=== PATIENT | female | born 1985 | race Caucasian/White ===

== ENCOUNTER 2016-11-23 13:37 | Observation (INO) | payer MEDICAID ==
[~2016-11-23] VITALS: Ht 152.4 cm; Wt 95.3 kg
[2016-11-23] MEDS ORDERED: FERROUS SULFAT325 M1 PO (13:52)
[2016-11-23] MEDS ORDERED: PRENATAL VITAMI1 TA2 PO (13:52)
[2016-11-23 14:24] VITALS: BP 103/88
== END 2016-11-23 19:50 | disposition home or self-care (01) ==
LOC: MLD 13:37
PROVIDERS: ADMIT Obstetrics & Gynecology; ATTEND Obstetrics & Gynecology
DX: O12.03 Gestational edema, third trimester (principal); Z3A.35 35 weeks gestation of pregnancy
CPT/HCPCS: 76805; G0378; Q0092

== ENCOUNTER 2016-12-07 14:21 | Observation (INO) | payer MEDICAID ==
[~2016-12-07] VITALS: Ht 152.4 cm; Wt 97.1 kg
[~2016-12-07 14:21] MED LIST: FERROUS SULFAT325 M1 PO; PRENATAL VITAMI1 TA2 PO
== END 2016-12-07 14:50 | disposition home or self-care (01) ==
LOC: MLD 14:21
PROVIDERS: ADMIT Obstetrics & Gynecology; ATTEND Obstetrics & Gynecology
DX: O26.893 Other specified pregnancy related conditions, third trimester (principal); R10.9 Unspecified abdominal pain; Z3A.37 37 weeks gestation of pregnancy
CPT/HCPCS: 59025; 76805; G0378; Q0092

== ENCOUNTER 2016-12-08 20:59 | Observation (INO) | payer MEDICAID ==
[~2016-12-08] VITALS: Ht 152.4 cm; Wt 97.1 kg
[2016-12-09] MEDS ORDERED: NATURAL IRON65 MG PO (07:32)
[2016-12-09] MEDS ORDERED: PRENATAL VITAMI1 TA2 PO (07:32)
[2016-12-09] MEDS ORDERED: NALBUPHINE 10 MG/ML AMP IVP PRN (07:35)
[2016-12-09] MEDS ORDERED: LACTATED RINGERS 1,000 ML IV SCH (07:35)
== END 2016-12-09 18:22 | disposition home or self-care (01) ==
LOC: MLD 20:59
PROVIDERS: ADMIT Obstetrics & Gynecology; ATTEND Obstetrics & Gynecology
DX: O26.893 Other specified pregnancy related conditions, third trimester (principal); R10.9 Unspecified abdominal pain; O48.0 Post-term pregnancy; Z3A.40 40 weeks gestation of pregnancy
CPT/HCPCS: G0378; J7120

== ENCOUNTER 2016-12-10 17:56 | Inpatient (IN) | payer MEDICAID ==
[~2016-12-10] VITALS: Ht 152.4 cm; Wt 102.1 kg
[~2016-12-10 17:56] MED LIST changes: +NATURAL IRON65 MG PO
[2016-12-10 18:26] VITALS: BP 119/76
[2016-12-10] MEDS ORDERED: LACTATED RINGERS 1,000 ML IV SCH (19:07)
[2016-12-10] MEDS ORDERED: OXYTOCIN 10 UNITS/ML VIAL IM SCH (19:10)
[2016-12-10] MEDS ORDERED: PROMETHAZINE 25 MG/ML VIAL IVP PRN (19:10)
[2016-12-10] MEDS ORDERED: NALBUPHINE HYDROCHLORIDE 10 MG/ML VIAL IVP PRN (19:10)
[2016-12-10] MEDS ORDERED: METHYLERGONOVINE 0.2 MG/ML AMP IM PRN (19:10)
[2016-12-10] MEDS ORDERED: NALBUPHINE HYDROCHLORIDE 10 MG/ML VIAL ONE (21:03)
[2016-12-10] MEDS ORDERED: OXYTOCIN 20 UNITS/LR PREMIX 1,000 ML IV SCH ×2 (21:07→22:00)
[2016-12-10] MEDS ORDERED: MISOPROSTOL 25 MCG TAB ONE (21:10)
[2016-12-10] MEDS ORDERED: MISOPROSTOL 25 MCG TAB VG ONE (21:10)
[2016-12-10] MEDS ORDERED: NALBUPHINE 10 MG/ML AMP IVP PRN (21:10)
[2016-12-11] VITALS (29 sets, daily range): BP systolic 66–131; BP diastolic 26–99
[2016-12-11] MEDS ORDERED: ROPIVACAINE 0.2%/NS PREMIX 250 ML EPI ONE (02:31)
[2016-12-11] MEDS ORDERED: TERBUTALINE 1 MG/ML VIAL SUBQ PRN (05:40)
--- NOTE | 2016-12-11 08:29 | NUR ---
PATIENT HAS BEEN SCREENED AND CATEGORIZED LOW NUTRITION RISK. PATIENT WILL BE SEEN WITHIN 7 DAYS OF ADMISSION. 12/17/[address] Addendum: 12/14/16 at [address] DUE TO A CHANGE IN PT STATUS, PATIENT HAS BEEN RESCREENED AND RECATEGORIZED MODERATE NUTRITION RISK. PATIENT WILL BE SEEN WITHIN 3-5 DAYS OF ADMISSION. 12/13/16-12/15/[address]
[2016-12-11] MEDS ORDERED: ceFAZolin 1,000 MG VIAL ONE (10:59)
[2016-12-11] MEDS ORDERED: BUPIVACAINE-MPF 0.75% 10 ML VIAL INJ ONE (11:20)
[2016-12-11] MEDS ORDERED: ePHEDrine 50 MG/ML VIAL ONE (11:20)
[2016-12-11] MEDS ORDERED: OXYTOCIN 10 UNITS/ML VIAL ONE (11:20)
[2016-12-11] MEDS ORDERED: ONDANSETRON 4 MG/2 ML VIAL ONE (11:20)
[2016-12-11] MEDS ORDERED: MORPHINE PRES FREE 10 MG/10 ML AMP IV ONE (11:34)
[2016-12-11] MEDS ORDERED: MIDAZOLAM 2 MG/2 ML VIAL ONE ×2 (11:34→13:31)
[2016-12-11] MEDS ORDERED: NALBUPHINE 10 MG/ML AMP IVP PRN (12:00)
[2016-12-11] MEDS: KETOROLAC 30 MG/ML VIAL IM/IVP SCH ×2 (12:00→18:00)
[2016-12-11] MEDS ORDERED: MEPERIDINE 25 MG/ML SYR IVP PRN (12:00)
[2016-12-11] MEDS ORDERED: ONDANSETRON 4 MG/2 ML VIAL IVP PRN ×3 (12:00→14:35)
[2016-12-11] MEDS ORDERED: diphenhydrAMINE 50 MG/ML VIAL IVP PRN ×3 (12:00→14:35)
[2016-12-11] MEDS ORDERED: NALOXONE 0.4 MG/ML VIAL IVP PRN ×3 (12:00)
[2016-12-11] MEDS ORDERED: HYDROmorphone 1 MG/ML AMP IVP PRN (12:00)
[2016-12-11] MEDS ORDERED: OXYTOCIN 20 UNITS/LR PREMIX 1,000 ML IV SCH ×2 (12:00→15:10)
[2016-12-11] MEDS ORDERED: KETOROLAC 30 MG/ML VIAL IVP PRN (14:35)
[2016-12-11] MEDS ORDERED: HETASTARCH 6% 500 ML IV ONE (14:54)
--- NOTE | 2016-12-11 16:40 | NUR ---
admitted a 31 yo female from or sp c section.abdominal dressing dry and intact with a note do not remove with right and left ross bulb labeled a and b.right wrist piv 20 gauge with lr wide open and left hand 18 gauge saline lock.sinus tachycardia and bp 70s dr gomez at the bedside and aware.pt no co pain nor any discomfort.patel to gravity with dark oswald urine very low.dr gomez is aware.no vagina bleeding noted.will monitor.bilateral scd on.alert ,oriented x 4.
--- NOTE | 2016-12-11 16:45 | NUR ---
DR. BARROS PAGED THROUGH HIS OFFICE RE: CONSULT.
[2016-12-11] MEDS ORDERED: NACL 0.9% 1,000 ML IV SCH (17:30)
[2016-12-11] MEDS: OXYTOCIN 20 UNITS/LR PREMIX 1,000 ML IV SCH ×2 (18:04→23:17)
--- NOTE | 2016-12-11 18:30 | NUR ---
DR. BARROS PAGED TO BE NOTIFIED OF LAB RESULTS AND PATIENT'S CONDITION. DR. DOUGLAS PIPE OR STEAM FITTER FURNACE INSTALLER.
--- NOTE | 2016-12-11 18:35 | NUR ---
DR. DOUGLAS CALLED BACK. NOTIFIED OF LAB RESULTS, PT'S. VITAL SIGNS, URINE AND NELY X 2 OUTPUT. GAVE ORDERS.,
[2016-12-11] MEDS ORDERED: NACL 0.9% 500 ML IV ONE (18:40)
--- NOTE | 2016-12-11 19:19 | NUR ---
RECEIVED REPORT FROM ALFA PATEL. PATIENT IS AWAKE, ALERT, AND ORIENTED, WITH MOTHER AT BEDSIDE. PATIENT IS PRIMARILY MONTSERRATIAN SPEAKING BUT IS ABLE TO CONVEY NEEDS ADEQUATELY IN BELARUSIAN. PATIENT IS DX S/P BLEEDING. THERE IS A #18 IN THE LEFT HAND SALINE LOCK AND THERE IS A #18 IN THE RIGHT WRIST RECEIVING PITOCIN 20 UNITS IN LACTATED RINGER'S AT 125 ML/HR. BOTH SITE ARE INTACT, PATENT, AND ASYMPTOMATIC. THERE IS AN ABDOMINAL DRESSING COVERING PATIENT'S ABDOMEN THAT IS DRY AND INTACT. THERE IS A NELY DRAIN ON THE RIGHT SIDE OF PATIENT'S ABDOMEN LABELED A AND ANOTHER NELY DRAIN ON THE LEFT SIDE OF THE ABDOMEN LABELED B. THERE IS SCANT AMOUNT OF SEROSANGUINEOUS FLUID IN NELY DRAIN LABEL A AND 20 ML OF SEROSANGUINEOUS FLUID IN NELY DRAIN LABELED B. EXPLAINED PLAN OF CARE TONIGHT TO INCLUDE TRANSFUSION OF PRBC, MONITORING, VITAL SIGNS, AND SCHEDULED MEDICATION ADMINISTRATION. PATIENT VERBALIZED UNDERSTANDING. HOB AT 30 DEGREES WITH BED IN LOW POSITION. CONTINUE TO MONITOR PATIENT. Addendum: 12/11/16 at 2049 by Alok Mirza RN THERE IS A YEE CATHETER IN PLACE DRAINING TO GRAVITY WITH MINIMAL AMOUNT OF CLEAR YELLOW URINE NOTED. SCDS ARE IN PLACE FOR VTE PROPHYLAXIS. Addendum: 12/11/16 at 2124 by Alok Mirza RN NELY OUTPUT IS SANGUINEOUS, NOT SEROSANGUINEOUS.
[2016-12-11] MEDS: KETOROLAC 30 MG/ML VIAL IVP PRN (19:34)
--- NOTE | 2016-12-11 20:05 | NUR ---
ELLEN RASHID RN AT BEDSIDE TO ASSESS PATIENT. Addendum: 12/12/16 at 0038 by Alok Mirza RN L&D TARUN HUGHES
--- NOTE | 2016-12-11 20:15 | NUR ---
DR. KELLEY AT BEDSIDE TO SEE PATIENT. CHARGE NURSE CHIKIS PATEL GAVE MD PATIENT'S STATUS CONDITION. NO NEW ORDERS GIVEN AT THIS TIME. CONTINUE TO MONITOR PATIENT.
--- NOTE | 2016-12-11 20:27 | NUR ---
REPOSITIONED PATIENT FOR COMFORT. NO SIGNS OF SOB NOTED. HOB AT 30 DEGREES WITH BED IN LOW POSITION. CONTINUE TO MONITOR PATIENT.
--- NOTE | 2016-12-11 21:28 | NUR ---
DR. ALVERTO BARROS (DIRECTOR OF COMMUNITY EDUCATION) CALLED AT 2114, UPDATES GIVEN ON PATIENT'S CONDITION: BP 79/45, ON BLOOD TRANSFUSION OF 1 UNIT PRBC WITH CBC ORDERED AT [address] DOUGLAS; DR. KELLEY (OB) WAS HERE TO SEE THE PATIENT AT 2014. PATIENT AAOX4, DENIES PAIN, OB RN GAY WAS HERE AT 2009 TO ASSESS THE PATIENT, PER RN SMALL AMOUNT OF BLEEDING NOTED ON PATIENT'S PAD. NO NEW ORDER RECEIVED FROM DR. BARROS.
--- NOTE | 2016-12-11 21:45 | NUR ---
DR. BARROS AND DR. KELLEY AT BEDSIDE TO SEE PATIENT. NEW ORDERS GIVEN AND ENTERED BY DR. BARROS GIVEN FOLLOWS: CT WITHOUT CONTRAST OF THE ABDOMEN/PELVIS, 1 LITER BOLUS OF NORMAL SALINE WIDE OPEN, CHEM 7 PANEL. WILL FOLLOW UP WITH NEW MD ORDERS.
[2016-12-11] MEDS ORDERED: NACL 0.9% 500 ML IV SCH (21:55)
--- NOTE | 2016-12-11 22:13 | NUR ---
DR. BARROS (BIOMETRICS INSTRUCTOR) AND DR. KELLEY (OB GYNE) WERE HERE AT 2145, AWARE OF PATIENT'S RECENT VITAL SIGNS, HR 99- BP 84/39, RR 10, 98%. DR. BARROS INFORMED THAT PATIENT'S URINE OUTPUT ON DAYSFT WAS ONLY 10 MLS, DR. BARROS GAVE ORDERS: NS 1000 MLS WIDE OPEN, CT ABD/PELVIS WITHOUT CONTRAST IN AM AT 0800 AND LAB WORKS AT 0500. WILL CONTINUE TO MONITOR PATIENT.
--- NOTE | 2016-12-11 22:26 | NUR ---
ELLEN GAY RN AT BEDSIDE TO ASSESS PATIENT. OUTPUT OF 70ML OF SANGUINEOUS FLUID FROM NELY DRAIN B. CONTINUE TO MONITOR PATIENT. Addendum: 12/12/16 at 0038 by Alok Mirza RN L&D TARUN HUGHES
--- NOTE | 2016-12-11 22:34 | NUR ---
PATIENT REPOSITIONED FOR COMFORT. NO SIGNS OF SOB NOTED. HOB AT 30 DEGREES WITH BED IN LOW POSITION. CONTINUE TO MONITOR PATIENT.
--- NOTE | 2016-12-11 23:06 | NUR ---
MUSEUM LIBRARIAN AT BEDSIDE FOR SCHEDULED LAB DRAW.
[2016-12-12] VITALS (48 sets, daily range): BP systolic 93–151; BP diastolic 46–83
--- NOTE | 2016-12-12 | NUR ---
CURRENT HGB LEVEL DRAWN AT 2310 IS 8.5, PER DR. KELLEY (OB GYNE) INSTRUCTIONS WHEN HE WAS HERE AT 2014 TO CALL HIM IF HGB LEVEL IS LOWER THAN THE HGB THAT WAS DRAWN AT 1750 WHICH WAS 8.
--- NOTE | 2016-12-12 00:28 | NUR ---
PAGED DR. CM. WILL WAIT FOR CALL BACK.
--- NOTE | 2016-12-12 00:31 | NUR ---
SPOKE TO DR. DOUGLAS. INFORMED MD OF PATIENT'S HGB 8.5 AND HCT 25.0 AFTER INFUSION OF PRBC. ALSO INFORMED MD THAT DR. BARROS WAS IN EARLIER AND ORDERED BOLUS OF NORMAL SALINE AND PATIENT HAD URINE OUTPUT OF 50ML. DR. DOUGLAS ACKNOWLEDGED BY STATING "OK". ASKED MD IF HE HAD ANY NEW ORDERS. DR. DOUGLAS SAID "NO NEW ORDERS." WILL CONTINUE TO MONITOR PATIENT.
--- NOTE | 2016-12-12 01:47 | NUR ---
PATIENT SLEEPING IN BED. BREATHING IS EVEN AND UNLABORED. CALL LIGHT WITHIN REACH. CONTINUE TO MONITOR PATIENT.
[2016-12-12] MEDS: OXYTOCIN 20 UNITS/LR PREMIX 1,000 ML IV SCH ×2 (02:14→10:59)
--- NOTE | 2016-12-12 02:30 | NUR ---
L&D GAY RN AT BEDSIDE ASSESSING PATIENT.
--- NOTE | 2016-12-12 03:47 | NUR ---
ROUNDED ON PATIENT. PATIENT IS ASLEEP WITH BREATHING EVEN AND UNLABORED. VITALS ARE STABLE. WILL CONTINUE TO MONITOR PATIENT.
--- NOTE | 2016-12-12 04:40 | NUR ---
L&D GAY RN AT BEDSIDE TO ASSESS PATIENT'S LOCHIA AND FUNDUS.
--- NOTE | 2016-12-12 05:00 | NUR ---
PATIENT ABLE TO PERFORM SELF ORAL CARE. NO SIGNS OF SOB NOTED. MORNING CARE RENDERED. CHANGED PATIENT'S GOWN. PATIENT REPOSITIONED FOR COMFORT. NEEDS MET AT THIS TIME. HOB AT 30 DEGREES WITH BED IN LOW POSITION. CONTINUE TO MONITOR PATIENT.
[2016-12-12] MEDS: KETOROLAC 30 MG/ML VIAL IVP PRN ×3 (05:04→17:09)
--- NOTE | 2016-12-12 05:48 | NUR ---
SUSTAINABLE PRODUCTS MARKETING MANAGER AT BEDSIDE FOR MORNING LAB DRAW.
[2016-12-12] MEDS: KETOROLAC 30 MG/ML VIAL IM/IVP SCH ×3 (06:00→12:00)
--- NOTE | 2016-12-12 06:33 | NUR ---
Steve&Steff RASHID RN AT BEDSIDE ASSESSING PATIENT'S FUNDUS AND LOCHIA.
--- NOTE | 2016-12-12 07:13 | NUR ---
PATIENT SLEEPING IN BED AND IS STABLE. ALL NEEDS ATTENDED TO DURING SHIFT. ENDORSED CONTINUITY OF CARE TO JHON PATEL.
--- NOTE | 2016-12-12 07:15 | NUR ---
REPORT RECEIVED FROM JORGE BROWNE. PT SEEN AT BEDSIDE, AAOX4 WITH MOTHER AT BEDSIDE. PT IS PRIMARILY BELIZEAN SPEAKING, BUT ABLE TO UNDERSTAND SOME MOHAWK. PT IS ON ROOM AIR, NO S/S SOB OR DISTRESS AT THIS TIME. PT HAS A 18G LEFT HAND IV SALINE LOCKED AND 18G RIGHT WRIST IV RUNNING 20 UNITS PITOCIN WITH LR AT 125ML/HR. IV'S ARE PATENT AND INTACT. PT ON SUPERVISOR VINE FRUIT FARMING RUNNING SINUS TACHY AT THIS TIME, HR 118 AND BP 120/58. PT HAS GENERALIZED +1 EDEMA. PT NPO AT THIS TIME. YEE CATHETER IN PLACE DRAINING DARK, YELLOW URINE AT THIS TIME. PT HAS C/SECTION INCISION COVERED WITH DRESSING. DRESSING IS DRY AND INTACT. RIGHT ABD NELY DRAIN AND LEFT ABD NELY DRAIN IN PLACE DRAINING MINIMAL AMOUNT OF SEROSANGUINEOUS DRAINAGE. PT C/O OF MINIMAL CRAMPS AND SORE THROAT AT THIS TIME. ABLE TO MOVE EXTREMITIES, BUT BEDREST AT THIS TIME. SAFETY MEASURES CHECKED, CALL LIGHT LEFT AT BEDSIDE. WILL CONTINUE TO MONITOR.
--- NOTE | 2016-12-12 08:00 | NUR ---
PT OUT FOR CT ABD/PELVIS WITH RN AND PROFESSOR OF SPORT MANAGEMENT.
--- NOTE | 2016-12-12 08:15 | NUR ---
PATIENT BACK FROM CT ABD/PELVIS, TOLERATED WELL. PLACED BACK ON BEDSIDE ADDICTION THERAPIST. WILL CONTINUE TO MONITOR.
--- NOTE | 2016-12-12 08:30 | NUR ---
JOANN L&D RN AT BEDSIDE ASSESSING AND TALKING TO PATIENT.
--- NOTE | 2016-12-12 08:53 | NUR ---
RECEIVED CALL FROM UVAL[facility] AKERS, RADIOLOGY, FOR CRITICAL RAD RESULT.
[2016-12-12] MEDS ORDERED: PROBIOTIC SCREEN 1 EA MISC MC PRN (08:55)
--- NOTE | 2016-12-12 09:05 | NUR ---
DR. KELLEY NOTIFIED OF CRITICAL RADIOLOGY RESULTS, CURRENT LAB VALUES, VITAL SIGNS, NELY DRAINAGE, AND URINE AMOUNT. PATIENT HAS A STABLE BP AND TACHYCARDIA HR 104 AT THIS TIME. PER MD, PLEASE NOTIFY DR. BARROS ABOUT RESULTS.
--- NOTE | 2016-12-12 09:06 | NUR ---
DR. BARROS PAGED
--- NOTE | 2016-12-12 09:22 | NUR ---
RECEIVED CALLBACK FROM DR. BARROS. NOTIFIED MD OF CRITICAL CT ABD/PELVIS RESULTS, CURRENT LAB VALUES, AND VITAL SIGNS. ORDERS RECEIVED. WILL CONTINUE TO MONITOR.
--- NOTE | 2016-12-12 09:59 | NUR ---
TORADOL NONADMINISTERED BECAUSE TIME IS FOR 12/11/16 STRAP BUCKLER.
[2016-12-12] MEDS ORDERED: MAG SULF 2000 MG/WATER PREMIX 100 ML IV SCH (10:00)
--- NOTE | 2016-12-12 10:45 | NUR ---
DR. KELLEY AT BEDSIDE ASSESSING PATIENT. UPDATED MD ON PT'S CONDITION AND THAT PT HAS ELEVATED WBC AND 100.1F TEMP. PER MD, CONSULT DR. BARROS FOR ORDERS FOR CONTRAST CT ABD/PELVIS, ANTIBIOTICS, AND MEDICATIONS WHEN HE COMES TO VISIT PATIENT.
--- NOTE | 2016-12-12 11:07 | NUR ---
PRN TORADOL GIVEN FOR 4/10 ABD CRAMPING PAIN.
--- NOTE | 2016-12-12 11:37 | NUR ---
PT SLEEPING AT THIS TIME.
--- NOTE | 2016-12-12 11:40 | NUR ---
STARTED FFP TRANSFUSION.
--- NOTE | 2016-12-12 12:53 | NUR ---
DR. BARROS AT NURSING STATION. NOTIFIED OF DR KELLEY'S SUGGESTIONS. CT ABD/PELVIS W CONTRAST STAT AND ROCEPHIN FOR IV ABX ORDERED. WILL FOLLOW UP.
--- NOTE | 2016-12-12 14:10 | NUR ---
1ST UNIT FFP FINISHED. PT TOLERATED WELL. WILL CONTINUE TO MONITOR.
--- NOTE | 2016-12-12 14:30 | NUR ---
PT OFF UNIT TO CT ABD/PELVIS WITH CONTRAST ACCOMPANIED BY RN AND RADIOLOGY TECHS.
--- NOTE | 2016-12-12 14:50 | NUR ---
PT BACK FROM CT ABD/PELVIS. ATTACHED BACK TO BEDSIDE TIMBER MILL WORKER. PT TOLERATED WELL. WILL CONTINUE TO MONITOR.
--- NOTE | 2016-12-12 15:15 | NUR ---
RECEIVED CALL FROM [facility], FOR CRITICAL CT ABD/PELVIS.
--- NOTE | 2016-12-12 15:16 | NUR ---
DR. KELLEY AND DR. FIORELLA HORTON.
--- NOTE | 2016-12-12 15:18 | NUR ---
DR. BARROS NOTIFIED OF CRITICAL RADIOLOGY RESULTS AND HBG AT 7.3 AFTER UNIT OF FFP GIVEN. PER DR BARROS, GIVE 3 UNITS PRBC'S AND LET DR. KELLEY KNOW OF RADIOLOGY RESULTS ALSO. DR BARROS ALSO SUGGESTS PT BACK TO OR. DR KELLEY NOTIFIED OF CRITICAL RADIOLOGY RESULTS. DR KELELY AWARE OF RESULTS AT THIS TIME. WILL AWAIT ORDERS FROM DR. KELLEY. Addendum: 12/12/16 at 1612 by Martha Morris RN PER DR KELLEY, HE WILL TRY TO LOOK FOR VASCULAR SURGEON.
--- NOTE | 2016-12-12 15:50 | NUR ---
2ND UNIT FFP STARTED ON PATIENT.
--- NOTE | 2016-12-12 16:00 | NUR ---
DR. WARREN HORTON.
--- NOTE | 2016-12-12 16:15 | NUR ---
PT'S IN INCUBATOR AT PATIENT'S BEDSIDE WITH L&D NURSE.
--- NOTE | 2016-12-12 16:35 | NUR ---
TORADOL SCHEDULED NON ADMINISTERED. PT HAS PRN ORDER.
--- NOTE | 2016-12-12 16:38 | NUR ---
DR. WARREN HORTON.
--- NOTE | 2016-12-12 17:22 | NUR ---
DR. KELLEY PAGED AGAIN.
--- NOTE | 2016-12-12 17:45 | NUR ---
DR. KELLEY AT BEDSIDE TALKING TO PATIENT ABOUT SURGERY. UPDATED MD ON PATIENT CONDITION. PER MD, OK TO STOP PITOCIN DRIP AND SCHEDULED TORADOL. ORDERS RECEIVED TO PUT 2 UNITS FFP AND 4 UNITS PRBC'S ON HOLD. WILL FOLLOW UP ON ORDERS.
[2016-12-12] MEDS ORDERED: BUPIVACAINE-MPF 0.75% 10 ML VIAL INJ ONE (17:56)
[2016-12-12] MEDS ORDERED: PROPOFOL 200 MG/20 ML VIAL IV ONE (17:56)
--- NOTE | 2016-12-12 18:00 | NUR ---
DR. IBARRA AND ANESTHESIOLOGIST AT BEDSIDE TALKING TO PATIENT ABOUT SURGERY.
[2016-12-12] MEDS: HYDROmorphone 1 MG/ML AMP IVP PRN ×2 (18:02→22:39)
[2016-12-12] MEDS ORDERED: fentaNYL 0.05 MG/ML VIAL ONE (18:08)
--- NOTE | 2016-12-12 18:10 | NUR ---
PT WHEELED TO OR VIA BED WITH TWO UI DEVELOPER DESIGNER'S. Addendum: 12/12/16 at 1831 by Martha Morris RN FFP AND PRBC STILL INFUSING INTO PATIENT.
[2016-12-12] MEDS ORDERED: THROMBIN KIT 20 MU VIAL TP ONE (18:23)
--- NOTE | 2016-12-12 19:15 | NUR ---
REPORT GIVEN TO JORGE SANCHEZ. PT STILL IN OR.
[2016-12-12] MEDS ORDERED: METHYLERGONOVINE 0.2 MG/ML AMP ONE (20:32)
[2016-12-12] MEDS ORDERED: CARBOPROST 250 MCG/ML AMP IM ONE (20:35)
--- NOTE | 2016-12-12 21:15 | NUR ---
RECEIVED REPORT FROM ICU RUBBER PRINTING MACHINE OPERATOR DEE, PATIENT STILL IN SURGERY AT THIS TIME.
[2016-12-12] MEDS ORDERED: NEOMYCIN/POLYMYXIN/BACITRACIN OIN 15 GM TUBE TP ONE (21:48)
--- NOTE | 2016-12-12 22:10 | NUR ---
PATIENT GIVEN WITH EPIDURAL ANESTHESIA BEFORE SURGERY, ABLE TO MOVE BLE, NO PARESTHESIA NOTED.
--- NOTE | 2016-12-12 22:10 | NUR ---
PATIENT RETURNED TO ICU FROM SURGERY, REPORT GIVEN BY JORGE HILL. PATIENT IS ALERT, AWAKE, ORIENTED, ST ON THE MONITOR, ABDOMINAL DRESSING DRY AND INTACT, HAS THREE NELY DRAINS WITH SCANTY BLOODY DRAINAGE. PATIENT HAS TLC ON RIGHT SUBCLAVIAN, CXR ORDERED FOR CENTRAL LINE PLACEMENT. YEE CATH WITH SCANTY BLOODY DRAINAGE, IV SITES ON RIGHT WRIST G#18 AND LEFT HAND G#18 PATENT AND INTACT, SCD PLACED, KEPT COMFORTABLE.
--- NOTE | 2016-12-12 22:19 | NUR ---
CXR DONE AT BEDSIDE FOR CENTRAL LINE PLACEMENT VERIFICATION.
[2016-12-12] MEDS: LACTATED RINGERS 1,000 ML IV SCH (22:30)
--- NOTE | 2016-12-12 23:09 | NUR ---
DILAUDID 1 MG IVP GIVEN AT 2239 FOR ABDOMINAL PAIN 07/09, PAIN REASSESSMENT AT THIS TIME, PATIENT STATED "5, LITTLE BETTER".
--- NOTE | 2016-12-12 23:24 | NUR ---
DR. MAUREEN KELLEY AND PATIENT'S MOTHER AND BOYFRIEND JAMES LEFT THE UNIT AT THIS TIME. DR. KELLEY UPDATED THE FAMILY WITH PATIENT'S RECENT CONDITION AFTER THE SURGERY, RULING MACHINE OPERATOR DERLOY WAS AT BEDSIDE TO INTERPRET.
[2016-12-13] VITALS (20 sets, daily range): BP systolic 116–152; BP diastolic 60–87
--- NOTE | 2016-12-13 | NUR ---
PATIENT SLEEPING. EASILY AROUSED, DENIES PAIN, REMAINS ON SUPINE POSITION FOR S/P EPIDURAL SPINAL ANESTHESIA.
--- NOTE | 2016-12-13 00:47 | NUR ---
DR. KELLEY HERE TO SEE THE PATIENT, INFORMED OF HGB (7.7) DRAWN AT 2245, NO ORDER FOR BLOOD TRANSFUSION GIVEN. CXR RESULT FOR CENTRAL PLACEMENT VERIFCATION CHECKED, TIP IS IN THE CAVOATRIAL JUNCTION.
[2016-12-13] MEDS: HYDROmorphone 1 MG/ML AMP IVP PRN ×6 (00:55→21:45)
--- NOTE | 2016-12-13 02:10 | NUR ---
PATIENT ASLEEP, ST ON THE MONITOR, REMAINS ON SUPINE POSITION, WILL CONTINUE TO MONITOR PATIENT.
--- NOTE | 2016-12-13 02:10 | NUR ---
CALLED L&Steff, SPOKE WITH EMILEE REDMOND RN TO GIVE MESSAGE TO GAY DAS/CHARGE NURSE IF SHE WILL COME AND ASSESS THE PATIENT. Addendum: 12/13/16 at 0319 by My Wood RN CALLED Steve&Steff, SPOKE WITH ORQUIDEA/JORGE AND NOT EMILEE REDMOND/JORGE
--- NOTE | 2016-12-13 03:19 | NUR ---
FOLLOW UP CALL MADE TO L&D TO CHECK WITH THE CHARGE NURSE IF SHE CAN COME AND ASSESS THE PATIENT, ORQUIDEA/JORGE WAS THE ONE WHO ANSWERED THE PHONE AND STATED THAT SHE TOLD GAY AND THAT SHE WILL COME AND SEE THE PATIENT ONCE THEIR TWO ADMISSIONS ARE DONE.
--- NOTE | 2016-12-13 03:32 | NUR ---
GAY DAS/JORGE FROM L&D CAME AT 0330 TO CHECK THE PATIENT, NO BLEEDING NOTED.
--- NOTE | 2016-12-13 04:19 | NUR ---
PATIENT ASLEEP, NO VAGINAL BLEEDING NOTED, DRESSING ON THE ABDOMINAL AREA IS DRY AND INTACT.
--- NOTE | 2016-12-13 04:30 | NUR ---
PAGED DR. BARROS THROUGH CALL EXCHANGE TO REPORT CURRENT HGB LEVEL (7.3) THAT WAS DRAWN AT 0222, WILL WAIT FOR MD TO CALL BACK.
--- NOTE | 2016-12-13 05:30 | NUR ---
GAY OB-RN HERE TO SEE THE PATIENT.
[2016-12-13] MEDS: LACTATED RINGERS 1,000 ML IV SCH ×2 (05:42→18:23)
--- NOTE | 2016-12-13 06:00 | NUR ---
DR. BARROS CALLED BACK, AWARE OF HGB 7.3, DR. BARROS HAD A STANDING ORDER GIVEN TO TRANSFUSE 2 UNITS PRBC WHEN HGB IS LESS THAN 8. URINE SPECIMEN SENT TO THE LAB. AM CARE PROVIDED, DILAUDID 1 MG IVP GIVEN AT 0557 FOR ABDOMINAL INCISION PAIN 04/08, REMAIN ON SUPINE POSITION, CAN START TURNING AND REPOSITIONING AT 1000.
--- NOTE | 2016-12-13 06:35 | NUR ---
0620: HGB DRAWN AT 0530 WAS 7.1. BLOOD TRANSFUSION FIRST UNIT PRBC STARTED AT 0630, VS STABLE.
--- NOTE | 2016-12-13 06:58 | NUR ---
DR. BARROS CALLED BACK, INFORMED THAT PATIENT IS REQUESTING IF SHE COULD EAT NOW, MD ORDERED FULL LIQUID DIET. INFORMED ALSO THAT DR. KELLEY WAS CONCERN ABOUT PATIENT'S BP RUNNING ON 140-130 AND THAT PATIENT DOES NOT HAVE ANY BP MEDS, DR BARROS STATED"ITS OK, DONT WORRY ABOUT IT".
--- NOTE | 2016-12-13 07:25 | NUR ---
REPORT RECEIVED FROM JORGE DIOP. PT SEEN AT BEDSIDE, AAOX4, PRIMARILY CYMRAES SPEAKING BUT ABLE TO COMMUNICATE WITH ICELANDIC. MOTHER AT BEDSIDE. ON 2L O2 VIA NC; NO S/S DISTRESS OR SOB AT THIS TIME. PT HAS A RIGHT WRIST 18G IV AND LEFT HAND 18G IV SALINE LOCKED AT THIS TIME. RIGHT TLC CENTRAL LINE RUNNING IVF AND PRBC'S AT THIS TIME. LINE IS PATENT AND INTACT. PT ON BOBCAT DRIVER/LABOR RUNNING SINUS TACHY, HR AT 112. PT HAS GENERALIZED +1 EDEMA[address] YEE CATHETER IN PLACE DRAINING BLOOD TINGED URINE AT THIS TIME. PATIENT IS S/P EXP LAP. ABD DRESSING IS CLEAN, DRY, AND INTACT. RIGHT ABD NELY (LABELED A), MID ABD NELY (LABELED B), AND LEFT ABD NELY (LABELED) C NOTED. NELY A AND C ARE DRAINING SEROSANGUINEOUS DRAINAGE WHILE NELY C IS DRAINING SANGUINEOUS DRAINAGE AT THIS TIME. PT ABLE TO MOVE X4 EXTREMITIES, BUT IS S/P SPINAL ANESTHESIA. NOTIFIED PATIENT THAT SHE MAY SIT UP AFTER 1000 TODAY TO EAT BREAKFAST D/T SPINAL ANESTHESIA. PT VERBALIZED UNDERSTANDING. SAFETY MEASURES CHECKED, CALL LIGHT LEFT AT BEDSIDE. WILL CONTINUE TO MONITOR.
--- NOTE | 2016-12-13 08:48 | NUR ---
ASSISTED PT WITH ORAL CARE.
--- NOTE | 2016-12-13 08:58 | NUR ---
1 UNIT OF PRBC'S FINISHED. NO S/S DISTRESS OR SOB AT THIS TIME.
--- NOTE | 2016-12-13 09:24 | NUR ---
DR. BARROS AT NURSING STATION. UPDATED MD ON PATIENT CONDITION. PER MD, OK TO GIVE 2ND UNIT OF PRBC WITH BMP LAB DRAW BEFORE GIVING SECOND UNIT. MD AWARE THAT UPDATED CBC AND H/H ARE NOT AVAILABLE AT THIS TIME BECAUSE PT IS RECEIVING BLOOD. WILL FOLLOW UP WITH ORDERS.
--- NOTE | 2016-12-13 09:30 | NUR ---
NOTIFIED LEXA FROM LAB TO DRAW BMP. NO H/H OR CBC AT THIS TIME BECAUSE BLOOD WAS JUST GIVEN. WILL CALL LAB FOR NEXT CBC AND H/H.
--- NOTE | 2016-12-13 10:05 | NUR ---
1 UNIT PRBC STARTED ON PATIENT. WILL CONTINUE TO MONITOR.
--- NOTE | 2016-12-13 10:30 | NUR ---
APPLE JUICE AND JELLO OFFERED FOR PATIENT.
--- NOTE | 2016-12-13 11:20 | NUR ---
L&D RN, DAILYNN, AT BEDSIDE ASSESSING PATIENT.
--- NOTE | 2016-12-13 11:54 | NUR ---
LUNCH TRAY GIVEN TO PATIENT. MOTHER AT BEDSIDE ASSISTING WITH LUNCH TRAY FOR PT.
--- NOTE | 2016-12-13 12:01 | NUR ---
1 UNIT OF PRBC'S FINISHED. NO S/S REACTION AT THIS TIME. VITAL SIGNS STABLE. WILL CONTINUE TO MONITOR.
--- NOTE | 2016-12-13 12:52 | NUR ---
PERIPHERAL IV'S DISCONTINUED PER PATIENT REQUEST.
--- NOTE | 2016-12-13 13:54 | NUR ---
PT C/O 04/08 ABD PAIN. DILAUDID ADMINISTERED
--- NOTE | 2016-12-13 14:22 | NUR ---
DR. KELLEY AT BEDSIDE WITH RN AND PATIENT. UPDATED MD ON PATIENT CONDITION, CURRENT LAB VALUES (HGB 8.8, HCT 26.4), AND VITAL SIGNS. DR KELLEY ASSESSING INCISION SITE, NELY DRAINS, AND YEE. PER MD, L&D RN WILL BRING IN OB UNDERWEAR FOR PATIENT. WILL FOLLOW UP WITH ORDERS.
--- NOTE | 2016-12-13 15:00 | NUR ---
ASSISTED PT TO GET OOB. ASSISTED PT WITH SPONGE BATH, ORAL CARE, AND ALEJANDRA/CATH CARE. LINEN AND GOWN CHANGED. WILL CONTINUE TO MONITOR.
--- NOTE | 2016-12-13 15:05 | NUR ---
PT REQUESTS SCD'S OFF AT THIS TIME.
--- NOTE | 2016-12-13 15:32 | NUR ---
PT'S MOTHER AT BEDSIDE.
--- NOTE | 2016-12-13 15:45 | NUR ---
CENTRAL LINE DRESSING CHANGED. PT TOLERATED WELL. WILL CONTINUE TO MONITOR.
--- NOTE | 2016-12-13 16:02 | NUR ---
L&D RN, DAILYNN, AT BEDSIDE ASSESSING PATIENT.
[2016-12-13] MEDS: KETOROLAC 30 MG/ML VIAL IVP PRN ×2 (17:06→23:15)
--- NOTE | 2016-12-13 17:06 | NUR ---
PT C/O ABD CRAMPING PAIN 02/06. TORADOL ADMINISTERED.
--- NOTE | 2016-12-13 17:35 | NUR ---
ASSISTED WITH DINNER TRAY.
--- NOTE | 2016-12-13 18:15 | NUR ---
OB RN, GRECIA AT BEDSIDE ASSESSING PATIENT.
--- NOTE | 2016-12-13 18:18 | NUR ---
ROSELIA, BEEF RIBBER, AT BEDSIDE DRAWING BLOOD FOR H/H.
--- NOTE | 2016-12-13 19:10 | NUR ---
Report given to JORGE Constantino.
--- NOTE | 2016-12-13 19:10 | NUR ---
RECEIVED PATIENT REPORT FROM DAY SHIFT RN JHON. FULL CODE, ON INTERVENTIONAL RADIOLOGY TECHNOLOGIST, SINUS TACHYCARDIA. AWAKE, ALERT, ORIENTED X4. UNDERSTANDS MACEDONIAN BUT PRIMARILY SPEAKS SAUDI ARABIAN. NASAL CANNULA 2LPM OXYGEN. WITH CENTRAL LINE RIGHT SUBCLAVIAN TRIPLE LUMEN CATH, ALL PORTS WITH GOOD BLOOD FLOW RETURN, RUNNING IVF OF LR AT 125 ML/HR. WITH ABDOMINAL INCISION, X3 NELY DRAINS INTACT. WITH VAGINAL PACK. SCD ON BOTH LEGS. GENERALIZED NON-PITTING EDEMA +1. WITH YEE CATHETER DRAINING SLIGHTLY PINK YELLOWISH URINE OUTPUT. ON FULL LIQUID DIET.
--- NOTE | 2016-12-13 19:40 | NUR ---
PATIENT SEEN AND EXAMINED BY DR. KELLEY. HE WANTED THE PATIENT TO STAND UP BUT INFORMED THAT PATIENT COMPLAINED OF PAIN AND JUST GIVEN PAIN SHOT. DR. KELLEY SAID WILL WAIT UNTIL 9PM. DR. KELLEY STAYED IN NURSES STATION TO CHECK ON LABS AND OTHER REPORTS. INFORMED OF INTAKE AND OUTPUT, ESPECIALLY ON THE DRAINS.
--- NOTE | 2016-12-13 21:00 | NUR ---
DR. KELLEY STILL IN THE UNIT, ASKED IF THE PATIENT CAN STAND UP. PATIENT STOOD UP WITH ASSISTANCE. DR. KELLEY INSTRUCTED SHE CAN WALK AND USE INCENTIVE SPIROMETRY AT THE SAME TIME. INCENTIVE SPIROMETRY DONE, ONLY REACHED 500-800, DR. KELLEY INFORMED. DR. KELLEY PUT 3 NECKLACE CHAINS ATTACHED TO X3 NELY DRAINS WHILE PATIENT WAS STANDING UP. HE EXAMINED THE DRESSING AND VAGINAL PACK WELL. PATIENT WALKED BY HERSELF INSIDE THE ROOM, UNDER CLOSE OBSERVATION. URINE OUTPUT SEEN BY DR. KELLEY. LUNG AUSCULTATIONS DONE BY DR. KELLEY.
--- NOTE | 2016-12-13 21:15 | NUR ---
2 L & D NURSES CAME IN AND SAW THE PATIENT IN THE ROOM. SEE L&D NOTES.
--- NOTE | 2016-12-13 22:00 | NUR ---
INSTRUCTED TO DO INCENTIVE SPIROMETER TOLERATED ATLEAST Q2H.
--- NOTE | 2016-12-13 23:00 | NUR ---
OXYGEN DESATURATION 83-85% ON 2LPM/NC. PULSE OXIMETER CHANGED AND OXYGEN INCREASED TO 3LPM/NC. PATIENT DENIES ANY SOB OR DIFFICULTY BREATHING. OXYGEN IMPROVED TO 90-92%.
[2016-12-14] VITALS (10 sets, daily range): BP systolic 92–151; BP diastolic 57–91
--- NOTE | 2016-12-14 00:10 | NUR ---
PATIENT CAN MOVE ALL EXTREMITIES AND CAN TURN ON BED BY HERSELF. SLEEPING AT THIS TIME. NO SIGNS OF DISTRESS OR DISCOMFORT AT THIS TIME. CALL LIGHT ON BEDSIDE. BED IN LOW POSITION. ALL DRAINS ARE INTACT. OXYGEN SATURATION 93%.
--- NOTE | 2016-12-14 00:30 | NUR ---
L&D RN CAME IN TO SEE PATIENT. SEE L&D NOTES.
--- NOTE | 2016-12-14 02:00 | NUR ---
MOVES AND TURNS ON BED BY HERSELF. BED IN LOW POSITION. CALL LIGHT AT BEDSIDE. DRESSING, VAGINAL PACK AND X3 NELY DRAINS ALL INTACT.
[2016-12-14] MEDS: LACTATED RINGERS 1,000 ML IV SCH ×2 (02:18→10:18)
[2016-12-14] MEDS: HYDROmorphone 1 MG/ML AMP IVP PRN ×2 (02:22→04:24)
--- NOTE | 2016-12-14 04:00 | NUR ---
NO SIGNS OF DISTRESS OR DISCOMFORT AT THIS TIME. PATIENT RESTING COMFORTABLY. AWAKE AT THIS TIME BUT DENIES PAIN.
--- NOTE | 2016-12-14 04:50 | NUR ---
L&D JORGE DICKSON CAME IN TO SEE PATIENT. SEE L&D NOTES.
--- NOTE | 2016-12-14 06:00 | NUR ---
MORNING CARE GIVEN. BRUSHED HER TEETH. SPONGE BATH GIVEN. SHAMPOO CAP CARE PROVIDED. ASSISTED ALSO WITH TUBERCULOSIS SPECIALISTJORGE HAINES FOR TURNING.
[2016-12-14] MEDS: KETOROLAC 30 MG/ML VIAL IVP PRN ×2 (06:52→13:28)
--- NOTE | 2016-12-14 07:20 | NUR ---
PATIENT REPORT GIVEN TO DAY SHIFT RN ROMÁN FOR CONTINUITY OF CARE. VITALLY STABLE, NO SIGNS OF DISTRESS OR DISCOMFORT. COMPLAINT OF NAUSEA NOTED AND ENDORSED TO ROMÁN.
--- NOTE | 2016-12-14 07:30 | NUR ---
RECEIVED PT FROM TYPING OFFICE WORKER JORGE HART. BEDSIDE MONITOR SHOWS ST 105. PT IS AWAKE, ALERT, AND ORIENTED. ON O2 NC 3L/MIN. NO S/S OF RESPIRATORY DISTRESS NOTED. LUNG SOUNDS CLEAR WITH DIMINISHED BASES. PT HAS ABDOMEN INCISION WITH 3 NELY DRAINS. EMPTIED J.P DRAIN B WITH 130 ML LIGHT PINK DRAINAGE.VAGINAL PACK IN PLACE. YEE CATH IN PLACE WITH 100 ML CLEAR YELLOW URINE OUTPUT. SCDS IN PLACE. PT HAS SUBCLAVIAN TLC RUNNING IVF OF LR AT 125 ML/HR. PT CAN MOVE ALL HER EXTREMITIES. POC DISCUSSED WITH PT, PT VERBALIZED UNDERSTANDING. CALL LIGHT IN REACH, WILL CONTINUE TO MONITOR.
--- NOTE | 2016-12-14 07:50 | NUR ---
ENCOURAGED PT TO DO DEEP BREATHING WITH INCENTIVE SPIROMETER.
--- NOTE | 2016-12-14 08:00 | NUR ---
BREAKFAST TRAY SERVED TO PT, PT HAD 150 ML LIQUID AND SOME OATMEAL.
--- NOTE | 2016-12-14 08:40 | NUR ---
WAS NOTIFIED OF TODAY AM LAB RESULTS WITH HGB 8.3 AND HCT 25.3 AND UPDATED IN PATIENT'S CONDITION WITH NATALIA SALTER DRAIN # B TOTAL 240 ML LIGHT PINK COLOR SINCE 0600 HR. PER ; ASK IF HE WANT TO ORDER CT OF ABDOMEN /PELVIS TODAY BEFORE TRANSFER PATIENT OUT OF ICU.
--- NOTE | 2016-12-14 08:45 | NUR ---
L&D RN ROSSI IN TO SEE PT, SEE L&D NOTES.
--- NOTE | 2016-12-14 09:10 | NUR ---
PLACED A CALL FOR REGARDING CT SCAN.
--- NOTE | 2016-12-14 09:23 | NUR ---
CALLED BACK , UPDATED IN PATENT'S CONDITION ,TODAY LAB REPORTS AND NOTIFIED OF WANTS TO KNOW IF THE PATIENT NEEDS TO HAVE CT OF ABDOMEN/PELVIS TODAY. PER ; NO CT SCAN AT THIS TIME,JUST WAIT UNTIL HE SEE THE PATIENT.
--- NOTE | 2016-12-14 10:00 | NUR ---
EMPTIED J.P DRAIN #B 60 ML LIGHT PINK DRAINAGE.
--- NOTE | 2016-12-14 11:50 | NUR ---
DR. BARROS IN TO ASSESS PT. PER ; NO NEED FOR CT SCAN REPEAT HEMOGLOBIN AT 1400, IF STABLE, CAN TRANSFER PT TO LD AND CHANGE IV TO SALINE LOCK. WILL CARRY OUT.
--- NOTE | 2016-12-14 12:30 | NUR ---
ASSISTED PT OUT OF BED TO SIT IN CHAIR FOR LUNCH ,SLIGHTLY SHORT OF BREATH ON EXERTION NOTED. CONTINUE ON O2 NC 3L/MIN. CONTINUE TO OBSERVE PT.
--- NOTE | 2016-12-14 13:20 | NUR ---
PT ATE REGULAR DIET 25%, DRINKING FLUID VERY WELL. PT COMPLAIN OF ABDOMINAL CRAMPS AFTER EATING . PT WANTS TO WALK A LITTLE BIT,TWO NURSES ASSISTED PATIENT TO WALK IN THE UNIT FOR 8 MINUTES. PT TOLERATED WELL. PUT PATIENT BACK TO BED. PT COMPLAINS OF ABDOMINAL CRAMPS COMES AND GOES, PAIN MEDICATION GIVEN ORDERED. EMPTIED J.P # B 80 ML LIGHT PINK DRAINAGE.
--- NOTE | 2016-12-14 13:57 | NUR ---
IN TO ASSESS PT, CHECKED ABDOMINAL DRESSING, J.P DRAINAGE, VAGINAL PACK. PER NO ACTIVE BLEEDING AT THIS TIME. MADE DR. KELLEY AWARE PT WAS OUT OF BED AND AMBULATED IN THE UNIT FOR EIGHT MINUTES.
--- NOTE | 2016-12-14 14:37 | NUR ---
SS NOTE: I SPOKE WITH PT BEDSIDE AND PROVIDED HER WITH L[facility] CO[facility]INICS AND A PRESCRIPTION DISCOUNT CARD.
--- NOTE | 2016-12-14 14:45 | NUR ---
WAS NOTIFIED OF CURRENT HBG 8.1 AND HCT 24.4 (DRAWN AT 1415). SAID THAT TO LET KNOW ABOUT IT. PLACED A CALL FOR .
--- NOTE | 2016-12-14 15:37 | NUR ---
RETURNED THE CALL ,UPDATED ON PATIENT'S CONDITION AND WAS NOTIFIED OF CURRENT HGB 8.1 & HCT 24.4 % PER ; LAURA TO TRANSFER THE PATIENT TO L&D TODAY. ORDER RECEIVED FOR AM LAB.
--- NOTE | 2016-12-14 15:50 | NUR ---
PT AWAKE, ALERT, AND ORIENTED. VSS. ROOM AIR O2 SAT 93%.TRANSFERRED PT TO L&D PER MD ORDER. ALL PERSONAL BELONGINGS WITH PT. BEDSIDE REPORT GIVEN TO DARIUS PATEL. Addendum: 12/14/16 at 1827 by Naomi Thomas RN TRANSFER TIME SHOULD BE 1750
--- NOTE | 2016-12-14 16:03 | NUR ---
EMPTIED J.P DRAINS #B 60 ML LIGHT PINK DRAINAGE.
[2016-12-14] MEDS: IBUPROFEN 800 MG TAB PO PRN (21:20)
[2016-12-14] MEDS ORDERED: SODIUM PHOSPHATE 118 ML ENEM RC PRN (22:00)
[2016-12-14] MEDS ORDERED: MEASLES, MUMPS, AND RUBELLA 1 VIAL SQVAC PRN (22:00)
[2016-12-14] MEDS ORDERED: oxyCODONE/APAP 5/325 MG 1 TAB TAB PO PRN (22:05)
[2016-12-15] MEDS: SIMETHICONE 80 MG TAB.CHEW PO PRN (08:47)
[2016-12-15] MEDS: BISACODYL 5 MG TABEC PO PRN (08:47)
[2016-12-15] MEDS: DOCUSATE SODIUM 100 MG GELCAP PO PRN (08:48)
[2016-12-15] MEDS: IBUPROFEN 800 MG TAB PO PRN ×2 (08:59→17:06)
[2016-12-15] MEDS ORDERED: LABETALOL 100 MG TAB PO SCH (16:30)
[2016-12-15] MEDS ORDERED: TERBUTALINE 1 MG/ML VIAL SUBQ ONE (23:08)
[2016-12-16] MEDS: IBUPROFEN 800 MG TAB PO PRN ×3 (06:21→23:09)
[2016-12-16] MEDS: SIMETHICONE 80 MG TAB.CHEW PO PRN (08:48)
[2016-12-16] MEDS: DOCUSATE SODIUM 100 MG GELCAP PO PRN (08:51)
[2016-12-16] MEDS: BISACODYL 5 MG TABEC PO PRN (08:51)
[2016-12-16] MEDS ORDERED: LABETALOL 100 MG TAB PO SCH (09:00)
[2016-12-16] MEDS: metroNIDAZOLE 500 MG TAB PO SCH ×2 (13:45→17:30)
[2016-12-16] MEDS: LABETALOL 200 MG TAB PO SCH (21:26)
[2016-12-17] MEDS: LABETALOL 200 MG TAB PO SCH (08:52)
[2016-12-17] MEDS: IBUPROFEN 800 MG TAB PO PRN (08:53)
[2016-12-17] MEDS: metroNIDAZOLE 500 MG TAB PO SCH ×2 (09:02→13:08)
[2016-12-17] MEDS ORDERED: MOTRIN400 MG PO (13:36)
[2016-12-17] MEDS ORDERED: FLAGYL250 MG PO (13:37)
== END 2016-12-17 15:35 | disposition home or self-care (01) | DRG 540 ==
LOC: UNDOADMOB 17:56 → MLD 17:56 → OBSVTOIN 19:07 → MFCC 12-11 11:36 → MIC 12-11 16:20 → MFCC 12-14 17:50
PROVIDERS: ADMIT Obstetrics & Gynecology; ATTEND Obstetrics & Gynecology
PROC: 30233N1 Transfusion of Nonautologous Red Blood Cells into Peripheral Vein, Percutaneous Approach (ICD-10-PCS; principal; 2016-12-11 11:30)
PROC: 10D00Z1 Extraction of Products of Conception, Low, Open Approach (ICD-10-PCS; 2016-12-12)
PROC: 0T788DZ Dilation of Bilateral Ureters with Intraluminal Device, Via Natural or Artificial Opening Endoscopic (ICD-10-PCS; 2016-12-12)
PROC: 30233L1 Transfusion of Nonautologous Fresh Plasma into Peripheral Vein, Percutaneous Approach (ICD-10-PCS; 2016-12-12)
PROC: 30233K1 Transfusion of Nonautologous Frozen Plasma into Peripheral Vein, Percutaneous Approach (ICD-10-PCS; 2016-12-12)
PROC: 02HV33Z Insertion of Infusion Device into Superior Vena Cava, Percutaneous Approach (ICD-10-PCS; 2016-12-12)
PROC: 0UQG0ZZ Repair Vagina, Open Approach (ICD-10-PCS; 2016-12-13)
PROC: 0UQ90ZZ Repair Uterus, Open Approach (ICD-10-PCS; 2016-12-13)
PROC: 0WC Anatomical Regions, General, Extirpation (ICD-10-PCS; 2016-12-13)
PROC: 3E0234Z Introduction of Serum, Toxoid and Vaccine into Muscle, Percutaneous Approach (ICD-10-PCS; 2016-12-15)
DX: O32.4XX0 Maternal care for high head at term, not applicable or unspecified (principal); N17.9 Acute kidney failure, unspecified; I95.9 Hypotension, unspecified; O26.833 Pregnancy related renal disease, third trimester; O71.4 Obstetric high vaginal laceration alone; Z68.41 Body mass index [BMI] 40.0-44.9, adult; O77.0 Labor and delivery complicated by meconium in amniotic fluid; E66.9 Obesity, unspecified; O99.214 Obesity complicating childbirth; N99.820 Postprocedural hemorrhage of a genitourinary system organ or structure following a genitourinary system procedure; Y83.9 Surgical procedure, unspecified as the cause of abnormal reaction of the patient, or of later complication, without mention of misadventure at the time of the procedure; Z37.0 Single live birth; Z3A.40 40 weeks gestation of pregnancy; Z23 Encounter for immunization